=== PATIENT | male | born 1975 | race Caucasian/White ===

== ENCOUNTER → 2022-07-06 08:31 | Outpatient (BNVA) | payer OTHER, SELFPAY | PROVIDERS: Visit Provider Internal Medicine | DX: S61.012A Laceration without foreign body of left thumb without damage to nail, initial encounter (principal); S64.32XA Injury of digital nerve of left thumb, initial encounter; W26.0XXA Contact with knife, initial encounter | CPT/HCPCS: 12002; 99203 ==

== ENCOUNTER → 2022-07-16 07:51 | Outpatient (BNVA) | payer OTHER, SELFPAY | PROVIDERS: Visit Provider Internal Medicine | DX: S61.012A Laceration without foreign body of left thumb without damage to nail, initial encounter (principal); S64.32XA Injury of digital nerve of left thumb, initial encounter; W26.0XXA Contact with knife, initial encounter | CPT/HCPCS: 99212; 99213 ==